=== PATIENT | male | born 1965 | race Two or more races ===

== ENCOUNTER 2022-12-04 11:50 | Day surgery (SDC) | payer OTHER ==
[~2022-12-04] VITALS: Ht 165.1 cm; Wt 78.0 kg
[2022-12-04] MEDS ORDERED: fentaNYL citrate 0.05 MG/ML VIAL ONE (13:27)
[2022-12-04] MEDS ORDERED: LIDOCAINE 2% 100 MG/5 ML UJET TP ONE (13:27)
[2022-12-04] MEDS ORDERED: MIDAZOLAM 2 MG/2 ML VIAL ONE (13:27)
[2022-12-04] MEDS ORDERED: MIDAZOLAM 2 MG/2 ML VIAL IVP ONE (14:25)
== END 2022-12-04 14:30 | disposition home or self-care (01) ==
LOC: MOR 11:50 → MMU 12:33 → MOR 14:30
PROVIDERS: ATTEND Internal Medicine Gastroenterology
DX: K62.5 Hemorrhage of anus and rectum (principal); K64.8 Other hemorrhoids; K21.00 Gastro-esophageal reflux disease with esophagitis, without bleeding; K31.89 Other diseases of stomach and duodenum; Z90.49 Acquired absence of other specified parts of digestive tract; Z79.899 Other long term (current) drug therapy
CPT/HCPCS: 36415; 43239; 45350; 86677; J2250; J3010

== ENCOUNTER 2023-04-21 12:24 | Day surgery (SDC) | payer OTHER ==
[~2023-04-21] VITALS: Ht 165.1 cm; Wt 81.6 kg
[2023-04-21] MEDS ORDERED: LIDOCAINE 2% 100 MG/5 ML UJET TP ONE (13:03)
[2023-04-21] MEDS ORDERED: fentaNYL citrate 0.05 MG/ML VIAL ONE (13:03)
[2023-04-21] MEDS ORDERED: fentaNYL citrate 0.05 MG/ML VIAL IVP ONE (14:15)
== END 2023-04-21 14:32 | disposition home or self-care (01) ==
LOC: MDS 12:24 → MMU 12:27 → MDS 14:32
PROVIDERS: ATTEND Internal Medicine Gastroenterology
DX: K62.5 Hemorrhage of anus and rectum (principal); K62.1 Rectal polyp; K64.9 Unspecified hemorrhoids; K62.89 Other specified diseases of anus and rectum; Z79.899 Other long term (current) drug therapy
CPT/HCPCS: 45338; 45350; J3010